=== PATIENT | female | born 1995 | race Caucasian/White ===

== ENCOUNTER → 2017-01-10 | Outpatient (CLI) | payer BC ==
[~2017-01-10] MED LIST: NO MEDICATIONS; TORADOL10 MG PO
--- NOTE | ~2017-01-10 | CT77 ---
[facility] A Service of [facility] & [facility] RADIOLOGY TEXT RESULTS PATIENT: WESLEY BROOKS LOCATION: [facility] : [birth year] UNIT #: [id number] AGE: [address]: Elio Jewell SEX: F ORDER DR: [id number] [facility] [address] [place], [place] [address] [id number] O MR#: [id number] Acc #: [id number] NAME: WESLEY BROOKS : 1995 SEX: F STUDY DATE/TIME: 01/10/2017 16:10 UNIT: [facility] ROOM: STUDY DESCRIPTION: CT IAC, Sella, Temporal Bone W Attending Physician: Elio Jewell Referring Physician: Elio Jewell Ordering Physician: Staff Doctor Not On Primary Care Physician: Poli Sosa M.D. MEDICAL IMAGING REPORT This report is preliminary unless electronic signature is present EXAM Temporal bone CT no contrast date of study 01/10/2017 PROCEDURE Axial temporal bone CT without contrast with multiplanar reformats. COMPARISON None. HISTORY Left ear pain and conductive hearing loss since 12/10. TECHNIQUE This CT exam was performed with one or more of the following radiation dose reduction techniques: automatic control, adjustment of mA and/or kV according to patient size, and iterative reconstruction. FINDINGS Soft tissue structures are unremarkable. On the right, the middle ear and mastoids are normally pneumatized and aerated. The ossicles are normal. The labyrinth is normal without abnormal mineralization or perilabyrinthine demineralization. There is a somewhat high-riding jugular bulb but the carotid jugular and facial canals are otherwise normal without evidence of dehiscence. There is no tegmen dehiscence and there is a normal foramen spinosum. On the left, there is some soft tissue thickening in the external auditory canal but the tympanic membrane appears normal. The middle ear and mastoids are normally pneumatized and aerated. The labyrinth is normal without abnormal mineralization or perilabyrinthine demineralization. The ossicles are normal. There is no labyrinthine or carotid or jugular [facility] A Service of [facility] & [facility] RADIOLOGY TEXT RESULTS PATIENT: WESLEY BROOKS LOCATION: [facility] : [birth year] UNIT #: [id number] AGE: [address]: Elio Jewell SEX: F ORDER DR: dehiscence and there is a normal foramen spinosum. IMPRESSION Soft tissue thickening in the left external auditory canal, otherwise normal bilateral temporal bone CT. Dictated by... Poli Sandoval M.D. THIS IS AN ELECTRONICALLY VERIFIED REPORT Poli Sandoval M.D. at 01/14/2017 1:50 PM BUBBA/jamal TD: 01/12/2017 05:25 JOB #: [id number] MEDICAL IMAGING REPORT Page 1 of 1 COPY
== END | disposition home or self-care (01) ==
LOC: CCAT 15:38
DX: H91.92 Unspecified hearing loss, left ear (principal)
CPT/HCPCS: 70480